=== PATIENT | female | born 1940 | race Caucasian/White ===

== ENCOUNTER 2016-05-03 13:08 | Inpatient (IN) | payer OTHER ==
[~2016-05-03] VITALS: Ht 170.2 cm; Wt 71.7 kg
--- NOTE | ~2016-05-03 | EKG ---
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
--- NOTE | ~2016-05-03 | HC ---
[facility] [place] [address] CONSULTATION Name: RASHAD SLAUGHTER Room #: 454-P [facility] IN ..#: [id number] Admission: 05/03/16 Attend Phys: Harley Beaver MD Discharge: Date of : 38 Report #: [id number] THIS REPORT FOR: //name// CC: Bob Beatty DATE OF SERVICE: 05/04/2016 PRIMARY CARE PHYSICIAN: Bob Josue DO HISTORY OF PRESENT ILLNESS: The patient is a 75-year-old single white female who I was asked to see in the hospital today after she had a syncopal spell. The patient has a long history of heart disease. She had a heart murmur for years and eventually underwent aortic valve replacement using tissue valve and repair of an ascending aortic aneurysm at [facility] in 2000. In 2009, she presented with atrial flutter and was anticoagulated with warfarin. She was placed on carvedilol, but developed bradycardia. She was taken off of carvedilol, but developed bradycardia with heart rates in the 30s. She continues to have paroxysmal atrial fibrillation. She is noted to have pauses. In 2011, I electively implanted a permanent dual chamber pacemaker for tachybrady syndrome. The patient was placed back on carvedilol. The patient has done well since that time. I last saw her in the cardiology clinic in May 2015. At that time, her pacemaker is working normally. The patient is on warfarin at that time. The patient was actually admitted here to [facility] a month ago with a urinary tract infection. The patient continues to live by herself. She was brought to the emergency room yesterday. She was found by her home health nurse on the floor. She has been incontinent. It is unclear whether she had syncope. She does have chronic back pain. She denied any recent shortness of breath, palpitations or chest pain. PAST MEDICAL HISTORY: Otherwise significant for cataract extraction, tonsillectomy, resection of the colon cancer in 2010, hypertension, hyperlipidemia, chronic kidney disease. CURRENT MEDICATIONS: Consists of tramadol, Zoloft, iron, carvedilol, aspirin, amlodipine, and Protonix. ALLERGIES: She has previous intolerance to SULFA DRUGS. FAMILY HISTORY: Her mother had an irregular heartbeat. SOCIAL HISTORY: She is single, never . She has a learning disability, previously worked in , lives in an apartment, her sister is a POA. No history of smoking or alcohol abuse. She used to stay active at [email or web address]. [address] [address] CONSULTATION Name: SLAUGHTERRASHAD J Room #: 454-P [facility] IN .R.#: [id number] Admission: 05/03/16 Attend Phys: Harley Beaver MD Discharge: Date of : 38 Report #: [id number] REVIEW OF SYSTEMS: She has had no history of stroke. She does have asthma. No history of peptic ulcer disease, liver disease. She has chronic kidney disease followed by Dr. Ahumada. She has a history of colon cancer, chronic back pain. No history of psychiatric illness. PHYSICAL EXAMINATION: GENERAL: Revealed an elderly female who is lying in bed. She appeared in no distress. VITAL SIGNS: She had a blood pressure of 120/60, pulse is 60. She is afebrile. HEENT: She was anicteric, conjunctiva pink. Mucous membranes are dry. NECK: Veins do not appear distended. No carotid bruits. CHEST: Revealed expiratory wheezes. CARDIOVASCULAR: Regular rate and rhythm, grade 2 systolic ejection murmur. ABDOMEN: Obese, soft, nontender. EXTREMITIES: Had no edema. Dorsalis pedis pulse could not be palpated. SKIN: Cool and dry. NEUROLOGIC: Nonfocal. IMAGING: Her ECG showed atrial fibrillation, controlled ventricular response rate and a right bundle branch block. On the monitor, the patient currently appears to be atrial paced. Her workup in the emergency room yesterday, she had a chest x-ray that showed cardiomegaly, pacemaker in place. Carotid Doppler study showed plaque with no high grade stenosis. CT scan of the head without contrast showed atrophy, old lacunar infarction. No hemorrhage. LABORATORY DATA: Sodium 136, potassium 4.9, BUN is 56, creatinine is 5.0. Her alkaline phosphatase is 232. Troponin 0.04. BNP 20,652. White blood cell count 7.5, hemoglobin 8.9 and platelet count 114,000. 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 Underlying rhythm and sinus bradycardia. There is normal thresholds for sensing and capture of both the atrial and ventricular lead. She was noted to have frequent mode switching that apparently would last hours at a time. IMPRESSION AND RECOMMENDATIONS: 1. Possible syncopal spell, reason unclear. I would rule out seizure. 2. Previous aortic valve replacement using a tissue valve. I would recommend an echocardiogram. 3. Sick sinus syndrome. Normal dual chamber pacemaker. 4. Paroxysmal atrial fibrillation. I would recommend starting the amiodarone. The patient does not appear to be a very good candidate for anticoagulation because of her history of falls and confusion and anemia. 5. Hypertension. The patient has been on a beta deneen. 6. Hyperlipidemia. The patient has been on a statin drug. 7. Chronic kidney disease. The patient has been followed by nephrology. 8. Anemia. No history of bleeding. The patient has been seen by GI in the [facility] [address] [place] [address] CONSULTATION Name: RASHAD SLAUGHTER Room #: 454-P [facility] IN ..#: [id number] Admission: 05/03/16 Attend Phys: Harley Beaver MD Discharge: Date of : 38 Report #: [id number] past. 9. History of colon cancer. By: [id number] Bob Dunn MD, FACC /nt
--- NOTE | ~2016-05-03 | HC ---
[facility] [place] [address] CONSULTATION Name: RASHAD SLAUGHTER Room #: 454-P ADM IN .R.#: [id number] Admission: 05/03/16 Attend Phys: Harley Beaver MD Discharge: Date of : 38 Report #: [id number] THIS REPORT FOR: //name// CC: Bob Beaver DATE OF SERVICE: 05/03/2016 HISTORY OF PRESENT ILLNESS: This is a 75-year-old female patient who was evaluated by me to determine any neurological etiology for the patient's episode of passing out. This patient gives a history that she does not remember what happened. She was passed out. The passing out episode was associated with incontinence. It happened spontaneously and slowly. Apparently, she remembers feeling weak all over the body and then she passed out. Otherwise, she does not know what brought it on and what made her better later on. She never had this kind of episode before. She denies any previous history of stroke, but CT scan does demonstrate stroke. REVIEW OF SYSTEMS: Pretty extensive in this patient. She has a pacemaker in. She follows up with Dr. Dunn. She does not know when was the last time she saw him. She does not think that she ever had a stroke, but CT scan does demonstrate stroke. She has a previous history of UTI and sepsis. She has a longstanding history of chronic renal failure. She is being followed by nephrology and she is going to see them here. She does feel depressed and she takes medications for that, at one time her B12 was low, but she does not know whether it was reached fact not. She had an irregular heart rhythm. She has a pacemaker. She has a history of hypertension. She has a history of depression. This was a relevant 14-point review of system. She is not complaining of any active cardiac, respiratory, GI, , constitutional, dermatological. She does have a baseline back pain. She does not have any dermatological or hematological symptoms, which is new. She does not have any new psychiatric symptom although she has baseline psychiatric problems. This was the relevant 14-point review of system. PAST MEDICAL HISTORY: Positive for pacemaker. FAMILY HISTORY: Negative for early age stroke. SOCIAL HISTORY: She denies the use of alcohol or tobacco. PHYSICAL EXAMINATION: Indicate that she is alert. She is responsive. She can follow simple commands. She looks very empathetic and flat affect. Her memory and fund of knowledge is diminished, but from the record, it looks like that is her baseline. Speech looks intact. Cranial nerve examination is 2-12 indicate [facility] [address] [place] [address] CONSULTATION Name: MAY SLAUGHTERKolby Daigle Room #: 454-P [facility] IN ..#: [id number] Admission: 05/03/16 Attend Phys: Harley Beaver MD Discharge: Date of : 38 Report #: [id number] that she is not able to completely bury her sclera on the left side. Otherwise, they were unremarkable. Her strength, sensation, reflexes and tone are symmetrical, but she is weak at the lower extremity. She indicated this is her baseline. She does not have any cerebellar sign or papilledema. There is no meningeal sign. There is no carotid bruit. She is otherwise reasonably well-developed individual who does not have any dysmorphic features of eyes, ears and face. Her vision and hearing looks adequate. She does not have a thyroid mass. Cardiac examination does indicate some irregularity, but she has a pacemaker, heart sounds, looks unremarkable. She does not appear to have any respiratory difficulty. She does not have much rhonchi. Her pulses are difficult to feel. She has no edema, cyanosis or jaundice. VITAL SIGNS: Blood pressure is 118/45, respiration 17, pulse is 65, temperature is 97.9. LABORATORY DATA: Her CT scan of the head was reviewed and that does show old strokes. One of them appears since last time. IMPRESSION: This patient is not a very good historian. Therefore, many things are not very clear to me. I need to talk to admitting doctor about this patient to get some further history. Records indicate she does have a pacemaker and she does have a history of atrial fibrillation. She tells me she is not on any anticoagulation and she is on aspirin. If that is the case, she needs that question to be evaluated to see if there history of atrial fibrillation has been there and the reason for not being on anticoagulation because CT scan does show a new stroke. The episode of passing does not appear to be secondary to neurological etiology. I will check an EEG. I cannot do an MRI because of the pacemaker and I cannot do a CT angiogram because of her kidney failure. I will do a carotid Doppler. 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 RECOMMENDATIONS: 1. 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 2. EEG. 3. Carotid Doppler. 4. We will recheck vitamin B12. 5. We will check an EEG in this patient. 6. We will follow up this patient with you and look at this test to see if we have any further recommendation. <ELECTRONICALLY SIGNED> By: Ren Pittman MD 05/05/161925 1826 04 MD mauricio Chavis
--- NOTE | ~2016-05-03 | HC ---
[facility] [place] [address] CONSULTATION Name: RASHAD SLAUGHTER Room #: 454-P [facility] IN .R.#: [id number] Admission: 05/03/16 Attend Phys: Harley Baever MD Discharge: Date of : 38 Report #: [id number] THIS REPORT FOR: //name// CC: Bob Beaver DATE OF SERVICE: 05/04/2016 HISTORY OF PRESENT ILLNESS: The patient is a 75-year-old white female who was found on the floor, noted to have an episode of incontinence, uncertain how long she was down. She was found by the home health physician primary care sports medicine. She was admitted to [facility]. She was noted to have old lacunar infarcts, left basal ganglia and left cerebellum and a new CVA just above the caudate nucleus in the right. She is not a candidate for an MRI secondary to a prior cardiac pacemaker. She was also noted to have some acute renal insufficiency secondary to dehydration with acute on chronic renal insufficiency. Nephrology has been involved. Neurology is seeing her as well. She has a past history of atrial flutter, although her Coumadin was stopped July 28 secondary to acute blood loss. The patient is now being seen in rehabilitation medicine consultation. PAST MEDICAL HISTORY: Includes pacemaker in 2011, hypertension, hypercholesterolemia, atrial fibrillation borderline, mental retardation, colon CA with colon resection and note of some metastasis, GI bleed in June 2010, depression, chronic kidney disease, ascending aorta repair with bioprosthetic valve in 2000. MEDICATIONS: Please see the full medication listing. SOCIAL HISTORY: Lives in an apartment. Did not utilize gait aids premorbidly. The apartment is on the seventh floor, and there is an elevator. She does have an involved sister and [id number] who take her grocery shopping. She occasionally utilizes a cane or walker, but typically does not utilize any gait aids. ALLERGIES: No known drug allergies. FAMILY HISTORY: Noncontributory. REVIEW OF SYSTEMS: Did not offer any current complaints of chest pain, shortness of breath or abdominal discomfort. She denies any specific problems swallowing, although the staff have noted some issues with pocketing. No focal extremity pain complaints. PHYSICAL EXAMINATION: GENERAL: A 75-year-old white female in no obvious distress. VITAL SIGNS: Last recorded temperature is 98.3, pulse 61, respirations 18, [address] [address] CONSULTATION Name: MAY SLAUGHTERN Pilo Room #: 454-P [facility] IN [facility]#: [id number] Admission: 05/03/16 Attend Phys: Harley Beaver MD Discharge: Date of : 38 Report #: [id number] blood pressure 127/47. NEUROLOGIC: The patient is alert. She was still a little sleepy as she just got out from a nap. She does follow basic 1 step commands, appeared appropriate, some delay to her responses. EOMs appear to be full. Facies appear to be symmetric. She has functional range of motion of both upper extremities with strength grade 4- to 3+/5. DTRs are trace to 1. In her lower extremities, there is no focal calf swelling. Strength is a grade 3+ to 4- right lower extremity. She may have a little bit more left hip flexor weakness, more of a grade 3+/5. Distally, she is more of a grade 4-/5. DTRs were trace to 1. She was noted to have a right-sided lean when getting up with occupational therapy and was max assist with bed mobility. She is demonstrating what appears to be some pocketing of food on the right and speech therapy has been consulted. Physical therapy did get her up, however, and she was able to ambulate 125 feet, front-wheeled walker with min assist for balance, sit to stand was min assist. ASSESSMENT: A 75-year-old white female with the following problem list: 1. 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 2. Some left-sided weakness, more involving the lower extremity than the upper extremity. 3. Rule out dysphagia with pocketing. Speech therapy to evaluate. 4. Acute renal insufficiency, superimposed on chronic kidney disease. 5. History of cardiac pacemaker. 6. History of atrial flutter. Anticoagulation was stopped secondary to a prior GI bleed. 7. Hypertension. 6. Borderline mental retardation. 7. Hypercholesterolemia. 8. Atrial fibrillation. 9. Congestive heart failure. 10. Chronic kidney disease. 11. Controlled reflux. PLAN: Therapy evaluations are continuing. Would anticipate she should be a good acute in-hospital inpatient rehabilitation candidate. She is motivated to return back to her apartment setting and does have family involvement with her sister and giqngal-jg-nww. She appears motivated to try to work on improving overall functional mobility and ADLs as well as her swallowing and cognition. She certainly meets diagnostic criteria and meets the therapy tolerance criteria for an acute in-hospital inpatient rehabilitation stay. Insurance precertification to be obtained as she is further medically stabilized, and we will follow along with you. <ELECTRONICALLY SIGNED> By: Bob Jeronimo MD 05/05/16 1539 [id number] [id number] Bob Jeronimo MD /nt
--- NOTE | ~2016-05-03 | EEG ---
[facility] [place] [address] ELECTROENCEPHALOGRAM Name: RASHAD SLAUGHTER Room #: 454-P [facility] IN M.R.#: [id number] Admission: 05/03/16 Attend Phys: Harley Beaver MD Discharge: Date of : 38 Report #: [id number] THIS REPORT FOR: //name// CC: Bob Beaver DATE OF SERVICE: 05/04/2016 This patient is being evaluated for the possibility of syncope and memory problems. EEG was done by placing the electrodes by standard 10-20 system of electrode placement. Both referential and sequential montages were used for recording. Background activity in this patient's EEG is about 11 Hz and 30 microvolts. The patient goes to sleep that is associated with bilaterally symmetrical sleep spindle and vertex sharp waves. Photic stimulation is unremarkable. Throughout the record, no active epileptiform activity was noticed. IMPRESSION: This patient's EEG is within normal limit. Thank you very much for this referral. <ELECTRONICALLY SIGNED> By: Ren Pittman MD 05/05/16 1930 1747 22 Ren Pittman MD /nt
--- NOTE | ~2016-05-03 | 2DMMODE ---
[facility] [place] [address] 2 D/M-MODE ECHOCARDIOGRAM Name: RASHAD SLUAGHTER Room #: 454-P [facility] IN [facility]#: [id number] Admission: 05/03/16 Attend Phys: Harley Beaver, Discharge: Date of : 38 Date of Service: 05/04/16 1647 Report #: [id number] THIS REPORT FOR: //name// APPROVED REPORT EXAM: Comprehensive 2D, Doppler, and color-flow Echocardiogram Patient Location: Bedside Blood Pressure: 127/47 mmHg HR: 61 bpm Other Information Study Quality: Adequate Indications Murmur Syncope 2D Dimensions RVDd: 47.21 mm IVSd: 12.92 (7-11mm) LVOT Diam: 20.57 (18-24mm) LVDd: 49.66 mm PWd: 12.22 (7-11mm) Ascending Aorta: 35.91 mm LVDs: 29.73 (25-40mm) IVC: 24.00 mm Aortic Root: 31.00 mm Volumes Left Atrial Volume (Systole) Single Plane 4CH: 55.16 mL Single Plane 2CH: 78.81 mL LA ESV Index: 41.00 mL/m2 Aortic Valve AoV Peak Guzman.: 1.65 m/s AO Peak Gr.: 10.82 mmHg LV Max P.32 mmHg LV Mean P.33 mmHg AO V2 VTI: 375.88 mm LV Max: 1.04 m/s MARTINEZ (VTI): 273.74 cm2 LV Mean: 0.71 m/s LV V1 VTI: 309.82 mm SV (LVOT): 763202.30 mL Mitral Valve MV PHT: 53.29 ms [facility] [address] [place] [address] 2 D/M-MODE ECHOCARDIOGRAM Name: SUKHJINDERRASHAD J Room #: 454-P [facility] IN [facility].#: [id number] Admission: 05/03/16 Attend Phys: Harley Beaver, Discharge: Date of : 38 Date of Service: 05/04/16 1647 Report #: [id number] MV E Max Guzman.: 0.96 m/s E/A Ratio: 1.4 MV A Guzman.: 0.71 m/s MV Decel. Time: 183.77 ms Pulmonary Valve PV Peak Guzman.: 1.24 m/s PV Peak Gr.: 6.16 mmHg Tricuspid Valve TR Peak Guzman.: 3.71 m/s RAP Estimate: 10.00 mmHg TR Peak Gr.: 55.13 mmHg Left Ventricle The left ventricle is normal size. There is normal LV segmental wall motion. Mild concentric left ventricular hypertrophy. Left ventricular systolic function is normal. The left ventricular ejection fraction is within the normal range. LVEF is 60-65%. The left ventricular diastolic function is normal. Right Ventricle Right ventricle is mildly dilated.. The right ventricular systolic function is normal. Atria Left atrium is moderately dilated. Right atrium is mildly dilated. Aortic Valve Bioprosthetic aortic valve is present. Mild aortic regurgitation. There is no aortic valvular stenosis. Mitral Valve The mitral valve is normal in structure. Mild mitral regurgitation. Tricuspid Valve The tricuspid valve is normal in structure. Mild to moderate tricuspid regurgitation. There is mild to moderate tricuspid regurgitation. The right atrial pressure is estimated at 10 mmHg. There is moderate-severe pulmonary hypertension. The estimated PAP is 65 mmHg. Pulmonic Valve Pulmonic valve is not well visualized.. Mild pulmonic regurgitation. Great Vessels The aortic root is normal in size. IVC is dilated and collapses [address] [address] 2 D/M-MODE ECHOCARDIOGRAM Name: SLAUGHTERRASHAD J Room #: 454-P [facility] IN [facility]#: [id number] Admission: 05/03/16 Attend Phys: Harley Beaver, Discharge: Date of : 38 Date of Service: 05/04/16 1647 Report #: [id number] >50% with inspiration. Pericardium There is no pericardial effusion. <Conclusion> Mild concentric left ventricular hypertrophy. Left ventricular systolic function is normal. The left ventricular ejection fraction is within the normal range. Right ventricle is mildly dilated.. Left atrium is moderately dilated. Right atrium is mildly dilated. Bioprosthetic aortic valve is present. Mild aortic regurgitation. Mild mitral regurgitation. Mild to moderate tricuspid regurgitation. There is mild to moderate tricuspid regurgitation. The right atrial pressure is estimated at 10 mmHg. There is moderate-severe pulmonary hypertension. The estimated PAP is 65 mmHg. <ELECTRONICALLY SIGNED> By: Bob Dunn MD, FACC 05/04/16 164 46 46 Bob Dunn MD, FACC /INF
--- NOTE | ~2016-05-03 | HC ---
[facility] [place] [address] CONSULTATION Name: RASHAD SLAUGHTER Room #: 454-P [facility] IN ..#: [id number] Admission: 05/03/16 Attend Phys: Harley Beaver MD Discharge: Date of : 36 Report #: [id number] THIS REPORT FOR: //name// CC: Bob Beaver DATE OF SERVICE: 05/03/2016 REASON FOR CONSULTATION: Elevated creatinine. HISTORY OF PRESENT ILLNESS: This is a 75-year-old female who was found down at home today. She says she was up and about yesterday, she had some back pain and laid down on the floor. Apparently at some point, she was incontinent of feces and urine. She was found today and brought into the Emergency Room. The patient speaks very little but is awake and alert. She states she just had pain and laid down on the floor, which she frequently does. She was in the hospital for 04/12/2016 through 04/17/2016. At that point, she had been having diarrhea. She was volume deplete. She spent 5 days in the hospital and eventually improved. During that prior hospitalization, the patient was admitted with a leukocytosis. She was volume deplete. It looks like cultures were negative during that stay. She received IV fluids. During that time, her creatinine originally was as high as 6.8, it dropped to 4.0 by the time of discharge. Again her baseline creatinine probably is in the 4-4.5 range. She presents today with a creatinine of 5.6. She says she is thirsty. She says she has been drinking some fluid. Appetite has been marginal. She fixes her own food. Her meals come from the cafeteria in her assisted living situation. She denies nausea or vomiting. She was having diarrhea during her prior hospitalization but none recently apparently. She claims she had been taking her medications. There was concern when she came in that she had had a CVA because she was found down. Apparently, there is evidence of some lacunar infarcts, some of which are possibly subacute, nothing as far as acute hemorrhage. Again, the patient has a known problem of chronic kidney disease stage 5. She has been followed in our office for years by Dr. Jagdeep Ahumada. She has declined progression to need dialysis. She for medical management. This has been documented in old records. PAST MEDICAL HISTORY: Longstanding hypertension. She has a history of prior ascending aortic aneurysm repair and bioprosthetic aortic valve. She has had chronic kidney disease now dating back for more than a decade. 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 She had laparoscopic sigmoid resection with reanastomosis. There has been mention that she has been demonstrated to have some metastatic disease, but I am not finding the scan that shows that that might have been done elsewhere. She has had problems with some right-sided hydronephrosis and for a while was getting ureteral stents placed, but those are now out. She says she is voiding without much problem. She has had a previous [facility] [address] [place] [address] CONSULTATION Name: MAY SLAUGHTERKolby Daigle Room #: 454-P ADM IN .R.#: [id number] Admission: 05/03/16 Attend Phys: Harley Beaver MD Discharge: Date of : 38 Report #: [id number] pacemaker placed. She has had atrial fibrillation. She has a pacemaker in place. MEDICATIONS: As listed on admission, tramadol, Zoloft 50 mg daily, iron, carvedilol 6.25 mg b.i.d., aspirin 81 mg daily, amlodipine 10 mg daily, pantoprazole 40 mg daily. ALLERGIES: No known medical allergies. FAMILY HISTORY: Also positive for colon cancer in her sister. SOCIAL HISTORY: The patient lives in a local care center. She generally does take care of some of her ADLs. Meals are provided for her, sounds like she gets some help with her medications. REVIEW OF SYSTEMS: Has been weak. Appetite has been poor. Denies nausea or vomiting, no further diarrhea, has occasional constipation. No difficulty voiding urine. Had some back pain, which is why she states she ended up down on the floor. She denies dyspnea, cough, chest pain or palpitations. She is unaware of fevers, chills or sweats. Mobility is fairly limited. No recent visual or hearing change, no weakness in the extremities. PHYSICAL EXAMINATION: GENERAL: Elderly appearing female, awake, alert, responsive at this time. Although her words are few, she does speak without much difficulty. I do not see evidence of aphasia. VITAL SIGNS: Blood pressure 118/45, heart rate 65, temperature 97.9, oxygen saturation 98%, heart rate 65. HEENT: Shows pupils are equal and reactive at 3 mm. Sclerae nonicteric. Oral mucosa is moist, no oral lesions. NECK: Supple, without JVD. I hear no bruits. CHEST: Fairly clear bilaterally. HEART: Appears fairly regular at this time. ABDOMEN: Has a few bowel sounds present, is nontender, no guarding or rebound. EXTREMITIES: Show just a trace bilateral ankle edema. She has absent pedal pulses. No upper extremity edema. NEUROLOGIC: She is moving all extremities. Is awake, alert and oriented, follows commands and she does not show any aphasia. LABORATORY DATA: From today, sodium 131, potassium 5.1, chloride 99, bicarbonate 21, BUN 56, creatinine 5.6, glucose 90, calcium 8.4, phosphorus 2.1. Total protein 7.2, albumin 2.1. INR is 1.1. White count 9.8. It had been 25.7 on her most recent admit. Hemoglobin 10.9, hematocrit 33.4, platelets 145,000. Differential on the white count 70 neutrophils, 4 bands, 13 lymphs, 11 monocytes and 2 eosinophils. Urinalysis specific gravity 1.010, pH 6.0, 1+ protein, 2+ blood, 0-5 white cells, 0-2 red cells. [facility] [address] [place] [address] CONSULTATION Name: RASHAD SLAUGHTER Room #: 454-P ADM IN [facility]#: [id number] Admission: 05/03/16 Attend Phys: Harley Beaver MD Discharge: Date of : 38 Report #: [id number] ASSESSMENT: 1. Chronic kidney disease stage 5. Her creatinine level is slightly higher than it was 3 weeks ago during her last hospitalization. It is not far off from what her baseline is, which tends to be 4-4.5. Blood pressure is okay, volume status is fairly good at the moment. That is with getting 2 liters of saline in the Emergency Room. She is on normal saline at 80 mL per hour right now and we will continue that. She can eat and drink ad kandy. I do not think she is uremic. She has previously not been deemed a dialysis candidate and I do not see any indication for reevaluating that at this time. 2. Possible new lacunar infarct, neurologically stable at this time. 3. Mild hyponatremia. She is on normal saline. This should correct. We will recheck in the morning. 4. Recent admission with diarrhea and leukocytosis, all of that appears to have been resolved at this time. 5. Hypertension historically. We will see how she does with IV fluids. She is normally on some propranolol. She may need to resume that. 6. Previous right hydronephrosis, negative on recent ultrasound. I do not think we need to reevaluate at this time. 7. 2011 sigmoid colon cancer conflicting statements on recent medical records concerning that. PLAN: 1. Continue current IV fluids, normal saline 80 mL per hour. 2. Recheck labs in the morning. 3. Follow eyes and nose. 4. We will follow along the care of this pleasant patient. <ELECTRONICALLY SIGNED> By: Gagandeep Allen MD 05/06/16 0826 1823 14 Vinicius Licona MD /nt
--- NOTE | ~2016-05-03 | EKG ---
[address] [address] ELECTROCARDIOGRAM REPORT Name: RASHAD SLAUGHTER Room #: 454-P ADM IN M.R.#: [id number] Admission: 05/03/16 Attend Phys: Harley Beaver MD Discharge: Date of : 38 Report #: [id number] THIS REPORT FOR: //name// [facility] Test Date: 2016-05-06 Test Time: 06:45:55 Pat Name: RASHAD SLAUGHTER Department: Room: 454 Gender: F Jaw Skinner: melissa : 1940 Requested By: Bob Dunn Order Number: [id number] MD: Mir Pastor Measurements Intervals [place] Rate: 61 P: [place]: 212 QRS: -34 QRSD: 142 T: 17 QT: 466 QTc: 470 Interpretive Statements Atrial-paced rhythm Right bundle branch block Compared to ECG 05/05/2016 08:07:21 Sinus rhythm no longer present Atrial premature complex(es) no longer present Electronically Signed On 05-06-2016 12:39:37 CDT by Mir Pastor [email or web address] <ELECTRONICALLY SIGNED> By: Mir Pastor MD 05/06/16 1239 0645 Mir Pastor MD /DOTTIE
--- NOTE | ~2016-05-03 | EKG ---
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 : 1940 Requested By: Mookie Chavez Order Number: [id number] MD: Jarek Tinoco Measurements Intervals [place] Rate: 82 P: [place]: QRS: -50 QRSD: 156 T: 30 QT: 436 QTc: 510 Interpretive Statements Baseline artifact Probable atrial fibrillation RBBB and LAFB Compared to ECG 04/12/2016 12:14:45 No significant change was found Electronically Signed On 05-04-2016 8:22:43 CDT by Jarek Tinoco [email or web address] <ELECTRONICALLY SIGNED> By: Jarek Tinoco MD, [facility] 05/04/16 0822 1318 1318 Jarek Tinoco MD, [facility] /EPI
[~2016-05-03 13:08] MED LIST: ACETAMINOPHEN325 M1 PO; AMLODIPINE BESY10 MG PO; ANTACID650 MG PO; ASPIRIN EC81 M1 PO; ASPIRIN81 M2 PO; AUGMENTIN 875875 MG PO; B12INJ IM; BODY PO; CARVEDILOL12.5 MG PO; CARVEDILOL6.25 MG PO; CIPRO250 M1 PO; COREG PO; COUMADIN 5 MG TA5 M1 PO; FUROSEMIDE 40 M40 M1 PO; FUROSEMIDE 80 M80 M1 PO; FUROSEMIDE 80 M80 MG PO; HYDROCODON-ACE1 EAC7; HYDROCODON-ACE1 EAC7 PO; Hydrocodone-Apap 5-325 Tablet PO; IRON325 PO; LASIX 80 MG TAB80 M1 PO; LIPITOR10 MG PO; LISINOPRIL10 MG PO; LISINOPRIL5 MG PO; NORCO 5-325 TA1 EACH PO; NORVASC 5 MG TAB5 MG PO; NORVASC10 MG PO; PRAVASTATIN SOD40 MG PO; PREDNISONE 10 M10 MG; PREDNISONE 10 M10 MG PO; PROTONIX40 M1 PO; PROTONIX40 M2 PO; SIMVASTATIN80 MG PO; TRAMADOL 50 MG50 MG PO; VITAMIN B-12100 MCG SC; ZOLOFT50 MG PO; [UNRECOGNIZED DRUG - OTHER] PO
[2016-05-03 13:09] VITALS: BP 107/74
[2016-05-03 13:42] LABS: HEMATOCRIT 33.4 % (37.0-47.0); HEMOGLOBIN 10.9 gm/dL (12.0-15.0); MANUAL DIFF YES; MCH 27.9 pg (26.0-34.0); MCHC 32.7 g/dL (28.0-37.0); MCV 85.4 fL (80.0-100.0); PLATELET COUNT 145 thou/uL (150-400); RBC 3.92 mil/uL (4.20-5.00); RDW 16.2 % (10.5-14.5); WBC 9.8 thou/uL (4.0-11.0)
[2016-05-03 13:51] LABS: APTT 28.8 Seconds (24.5-32.8); INR 1.1; PROTIME 11.8 Seconds (9.3-11.4)
[2016-05-03 13:55] LABS: ANION GAP 11 mmol/L (7-16); BUN 56 mg/dL (7-18); CALCIUM 8.4 mg/dL (8.5-10.1); CHLORIDE 99 mmol/L (98-107); CO2 21 mmol/L (21-32); CREATININE 5.6 mg/dL (0.6-1.3); GLUCOSE 90 mg/dL (70-99); POTASSIUM 5.1 mmol/L (3.5-5.1); SODIUM 131 mmol/L (136-145)
[2016-05-03 14:14] LABS: ALBUMIN 2.1 g/dL (3.4-5.0); ALKALINE PHOSPHATASE 299 U/L (46-116); CK-MB MASS 3.1 ng/mL (<0.5-3.6); MAGNESIUM 2.1 mg/dL (1.8-2.4); NT-PRO BRAIN NAT PEPTIDE 20652 pg/mL (<300); SGOT 45 U/L (15-37); SGPT 19 U/L (30-65); TOTAL BILIRUBIN 0.7 mg/dL (<0.1-1.0); TOTAL PROTEIN 7.2 g/dL (6.4-8.2); TROPONIN-I < 0.04 ng/mL (<0.04-0.07)
[2016-05-03 14:31] LABS: ABSOLUTE NEUTROPHILS 7.3 thou/uL (1.4-8.2); TOTAL CELL COUNT 100
[2016-05-03 15:09] LABS: URINE BILIRUBIN NEGATIVE (Negative); URINE BLOOD 2+ (Negative); URINE COLOR YELLOW; URINE GLUCOSE-RANDOM* NEGATIVE (Negative); URINE KETONES TRACE (Negative); URINE LEUKOCYTES-REFLEX NEGATIVE (Negative); URINE PROTEIN (DIPSTICK) 1+ (Negative); URINE UROBILINOGEN 0.2 E.U./dl (0.2-1.0)
[2016-05-03 15:17] LABS: SQUAMOUS 0-3 Few /LPF (0-3)
[2016-05-03 15:18] LABS: CASTS None Seen /LPF (None Seen); CRYSTALS None Seen /LPF (None Seen); URINE RBC 0-2 Rare /HPF (0-2); URINE WBC-REFLEX 0-5 Rare /HPF (0-5)
[2016-05-03 15:19] LABS: YEAST-REFLEX Present (None Seen)
[2016-05-03 16:44] VITALS: BP 131/49
[2016-05-03 16:54] VITALS: BP 118/45
[2016-05-03 20:00] VITALS: BP 122/53
[2016-05-03 22:30] LABS: TSH 1.538 uIU/mL (0.358-3.740)
[2016-05-04] VITALS: BP 118/38
[2016-05-04 02:12] LABS: HEMATOCRIT 27.6 % (37.0-47.0); MCH 27.8 pg (26.0-34.0); MCHC 32.4 g/dL (28.0-37.0); PLATELET COUNT 114 thou/uL (150-400); RBC 3.21 mil/uL (4.20-5.00); RDW 16.5 % (10.5-14.5); WBC 7.5 thou/uL (4.0-11.0)
[2016-05-04 02:15] LABS: HEMOGLOBIN 8.9 gm/dL (12.0-15.0); MANUAL DIFF YES
[2016-05-04 02:24] LABS: ALBUMIN 1.8 g/dL (3.4-5.0); CALCIUM 7.8 mg/dL (8.5-10.1); MAGNESIUM 1.8 mg/dL (1.8-2.4); POTASSIUM 4.9 mmol/L (3.5-5.1); TOTAL BILIRUBIN 0.5 mg/dL (<0.1-1.0); TOTAL PROTEIN 6.2 g/dL (6.4-8.2)
[2016-05-04 03:48] LABS: ABSOLUTE NEUTROPHILS 5.9 thou/uL (1.4-8.2); ANISOCYTOSIS 1+; TOTAL CELL COUNT 100
[2016-05-04 03:49] LABS: PLATELET ESTIMATE SLIGHTLY DECREASED
[2016-05-04 04:00] VITALS: BP 107/33
[2016-05-04 08:00] VITALS: BP 127/47
[2016-05-04 09:45] LABS: CHOLESTEROL 174 mg/dL (<200); HDL CHOLESTEROL 24 mg/dL (>40); TC:HDL 7.3 Ratio (Not establshd)
[2016-05-04 09:57] LABS: LDL CHOLESTEROL 110 mg/dL (<100); TRIGLYCERIDE 201 mg/dL (<150); VLDL 40 mg/dL (<40)
[2016-05-04 14:00] VITALS: BP 130/44
[2016-05-04 14:16] VITALS: BP 127/47
[2016-05-04 20:34] VITALS: BP 114/41
[2016-05-05 04:08] VITALS: BP 136/62
[2016-05-05 07:00] VITALS: BP 128/43
[2016-05-05 09:07] LABS: HEMOGLOBIN 8.9 gm/dL (12.0-15.0); MCH 28.4 pg (26.0-34.0); MCHC 32.8 g/dL (28.0-37.0); MCV 86.4 fL (80.0-100.0); RBC 3.12 mil/uL (4.20-5.00); RDW 17.3 % (10.5-14.5); WBC 7.2 thou/uL (4.0-11.0)
[2016-05-05 09:19] LABS: ALBUMIN 1.8 g/dL (3.4-5.0); CALCIUM 7.6 mg/dL (8.5-10.1); CREATININE 4.3 mg/dL (0.6-1.3); PHOSPHORUS 5.1 mg/dL (2.5-4.9); POTASSIUM 4.6 mmol/L (3.5-5.1)
[2016-05-05 11:00] VITALS: BP 140/40
[2016-05-05 15:00] VITALS: BP 100/44
[2016-05-05 19:16] VITALS: BP 127/40
[2016-05-06 04:00] LABS: HEMATOCRIT 25.2 % (37.0-47.0); HEMOGLOBIN 8.3 gm/dL (12.0-15.0); MCH 28.4 pg (26.0-34.0); MCHC 32.9 g/dL (28.0-37.0); MCV 86.5 fL (80.0-100.0); RBC 2.91 mil/uL (4.20-5.00); RDW 17.6 % (10.5-14.5); WBC 8.9 thou/uL (4.0-11.0)
[2016-05-06 04:21] LABS: ALBUMIN 1.6 g/dL (3.4-5.0); CALCIUM 7.5 mg/dL (8.5-10.1); CREATININE 4.2 mg/dL (0.6-1.3); PHOSPHORUS 4.6 mg/dL (2.5-4.9); POTASSIUM 5.3 mmol/L (3.5-5.1)
[2016-05-06 08:21] VITALS: BP 131/40
[2016-05-06 11:50] VITALS: BP 131/39
[2016-05-06 15:45] LABS: % SATURATION 21 % (20-39); IRON 26 ug/dL (50-170); TIBC 123 ug/dL (250-450); UIBC 97 ug/dL
[2016-05-06 16:00] LABS: FOLIC ACID 3.8 ng/mL (8.6-58.9)
[2016-05-06 16:19] VITALS: BP 125/34
[2016-05-06 19:45] VITALS: BP 145/41
[2016-05-07 03:38] VITALS: BP 137/34
[2016-05-07 05:10] LABS: ALBUMIN 1.7 g/dL (3.4-5.0); CALCIUM 7.8 mg/dL (8.5-10.1); PHOSPHORUS 4.5 mg/dL (2.5-4.9)
[2016-05-07 05:20] LABS: POTASSIUM 6.1 mmol/L (3.5-5.1)
[2016-05-07 07:34] VITALS: BP 153/50
[2016-05-07 11:51] VITALS: BP 142/40
[2016-05-07 15:17] VITALS: BP 132/44
[2016-05-07 19:15] VITALS: BP 144/49
[2016-05-08 05:19] LABS: ALBUMIN 1.6 g/dL (3.4-5.0); CALCIUM 8.2 mg/dL (8.5-10.1); PHOSPHORUS 4.5 mg/dL (2.5-4.9); POTASSIUM 5.2 mmol/L (3.5-5.1)
[2016-05-08 07:49] VITALS: BP 133/37
[2016-05-08 11:56] VITALS: BP 152/52
[2016-05-08 15:39] VITALS: BP 143/50
[2016-05-08 19:35] VITALS: BP 152/55
[2016-05-09 04:00] VITALS: BP 149/51
[2016-05-09 06:31] LABS: HEMOGLOBIN 8.2 gm/dL (12.0-15.0); MCH 28.2 pg (26.0-34.0); MCHC 32.7 g/dL (28.0-37.0); MCV 86.3 fL (80.0-100.0); RBC 2.9 mil/uL (4.20-5.00); RDW 18.4 % (10.5-14.5); WBC 11.4 thou/uL (4.0-11.0)
[2016-05-09 06:54] LABS: CALCIUM 7.9 mg/dL (8.5-10.1); CREATININE 3.8 mg/dL (0.6-1.3); MAGNESIUM 1.5 mg/dL (1.8-2.4); POTASSIUM 4.6 mmol/L (3.5-5.1)
[2016-05-09 07:30] VITALS: BP 150/47
[2016-05-09 11:30] VITALS: BP 147/48
[2016-05-09 15:40] VITALS: BP 149/48
[2016-05-09 19:25] VITALS: BP 150/53
[2016-05-10 03:56] VITALS: BP 150/63
[2016-05-10 07:30] LABS: CALCIUM 7.7 mg/dL (8.5-10.1); CREATININE 3.7 mg/dL (0.6-1.3); POTASSIUM 4.7 mmol/L (3.5-5.1)
[2016-05-10 07:41] VITALS: BP 148/90
[2016-05-10 11:45] VITALS: BP 147/77
[2016-05-10] MEDS ORDERED: PACERONE 200 M200 M1 PO (14:49)
[2016-05-10] MEDS ORDERED: LIPITOR10 MG PO (14:51)
[2016-05-10 15:47] VITALS: BP 127/47
[2016-05-11] MEDS ORDERED: ANTACID650 MG PO (10:38)
[2016-05-11] MEDS ORDERED: AUGMENTIN 875-1 EACH PO (10:39)
== END 2016-05-10 16:10 | disposition home health service (06) | DRG 64 ==
LOC: ER 13:08 → 4W 14:54 → EROBS 14:54 → 4W 16:41
PROVIDERS: Emergency Medicine; Hospitalist; Internal Medicine; Internal Medicine Nephrology; Nurse Practitioner; Psychiatry & Neurology Neuromuscular Medicine
DX: I63.9 Cerebral infarction, unspecified (principal); I50.41 Acute combined systolic (congestive) and diastolic (congestive) heart failure; E43 Unspecified severe protein-calorie malnutrition; I13.2 Hypertensive heart and chronic kidney disease with heart failure and with stage 5 chronic kidney disease, or end stage renal disease; E87.2 Acidosis; E87.0 Hyperosmolality and hypernatremia; N17.9 Acute kidney failure, unspecified; E87.1 Hypo-osmolality and hyponatremia; N18.5 Chronic kidney disease, stage 5; I48.92 Unspecified atrial flutter; B37.49 Other urogenital candidiasis; E87.5 Hyperkalemia; E86.0 Dehydration; I48.0 Paroxysmal atrial fibrillation; E78.00 Pure hypercholesterolemia, unspecified; I49.5 Sick sinus syndrome; M19.90 Unspecified osteoarthritis, unspecified site; F32.9 Major depressive disorder, single episode, unspecified; D63.8 Anemia in other chronic diseases classified elsewhere; D69.6 Thrombocytopenia, unspecified; E78.5 Hyperlipidemia, unspecified; K21.9 Gastro-esophageal reflux disease without esophagitis; G89.29 Other chronic pain; M54.5 Low back pain; B95.62 Methicillin resistant Staphylococcus aureus infection as the cause of diseases classified elsewhere; E66.9 Obesity, unspecified; Z68.24 Body mass index [BMI] 24.0-24.9, adult; Z98.42 Cataract extraction status, left eye; Z98.41 Cataract extraction status, right eye; Z95.0 Presence of cardiac pacemaker; Z95.2 Presence of prosthetic heart valve; Z85.038 Personal history of other malignant neoplasm of large intestine; Z80.0 Family history of malignant neoplasm of digestive organs
CPT/HCPCS: 10045

== ENCOUNTER 2016-05-11 10:29 | Emergency (ER) | payer OTHER ==
[~2016-05-11] VITALS: Ht 170.2 cm; Wt 72.6 kg
--- NOTE | ~2016-05-11 | EKG ---
[address] [address] ELECTROCARDIOGRAM REPORT Name: CHARLY SLAUGHTERLYN Pilo Room #: [facility]#: [id number] Admission: 05/11/16 Attend Phys: Discharge: 05/11/16 Date of : 38 Report #: [id number] THIS REPORT FOR: //name// [facility] ED Test Date: 2016-05-11 Test Time: 10:53:51 Pat Name: RASHAD SLAUGHTER Department: Room: Gender: F Care Connector: MZOOK : 1940 Requested By: Latisha Ventura Order Number: [id number] MD: Jacky Anthony Measurements Intervals [place] Rate: 100 P: [place]: QRS: -38 QRSD: 138 T: -9 QT: 410 QTc: 529 Interpretive Statements Atrial fibrillation Right bundle branch block Compared to ECG 05/06/2016 06:45:55 Atrial-paced complex(es) or rhythm no longer present Ventricular-paced complex(es) or rhythm no longer present Electronically Signed On 05-12-2016 13:27:02 CDT by Jacky Anthony [email or web address] <ELECTRONICALLY SIGNED> By: Jacky Anthony MD 05/12/16 1327 1053 1053 Jacky Anthony MD /EPI
[~2016-05-11 10:29] MED LIST changes: +PACERONE 200 M200 M1 PO
[2016-05-11] MEDS ORDERED: ANTACID650 MG PO (10:38)
[2016-05-11] MEDS ORDERED: AUGMENTIN 875-1 EACH PO (10:39)
[2016-05-11 10:57] LABS: ABSOLUTE NEUTROPHILS 9.8 thou/uL (1.4-8.2); BASOPHILS 1.9 % (0.0-2.0); EOSINOPHILS 2.6 % (0.0-3.0); HEMATOCRIT 31.4 % (37.0-47.0); HEMOGLOBIN 10.1 gm/dL (12.0-15.0); LYMPHOCYTES 10.1 % (24.0-44.0); MANUAL DIFF NO; MCH 28.1 pg (26.0-34.0); MCV 87.8 fL (80.0-100.0); MONOCYTES 9.2 % (1.0-8.0); PLATELET COUNT 174 thou/uL (150-400); POLYS 76.2 % (36.0-66.0); RBC 3.58 mil/uL (4.20-5.00); RDW 18.7 % (10.5-14.5); WBC 12.9 thou/uL (4.0-11.0)
[2016-05-11 11:03] LABS: CALCIUM 8.6 mg/dL (8.5-10.1); CREATININE 3.8 mg/dL (0.6-1.3)
== END 2016-05-11 13:16 | disposition home or self-care (01) ==
LOC: ER 10:29
PROVIDERS: Emergency Medicine
DX: M54.5 Low back pain (principal); Z95.0 Presence of cardiac pacemaker; I13.0 Hypertensive heart and chronic kidney disease with heart failure and stage 1 through stage 4 chronic kidney disease, or unspecified chronic kidney disease; N18.9 Chronic kidney disease, unspecified; I50.9 Heart failure, unspecified; E78.00 Pure hypercholesterolemia, unspecified; I48.91 Unspecified atrial fibrillation; Z85.038 Personal history of other malignant neoplasm of large intestine; F32.9 Major depressive disorder, single episode, unspecified; Z98.890 Other specified postprocedural states

== ENCOUNTER 2016-06-26 16:27 | Inpatient (IN) | payer OTHER ==
[~2016-06-26] VITALS: Ht 170.2 cm; Wt 72.6 kg
--- NOTE | ~2016-06-26 | HC ---
[facility] [place] [address] CONSULTATION Name: RASHAD SLAUGHTER Room #: 424-P ADM IN ..#: [id number] Admission: 06/26/16 Attend Phys: Shaun Cuenca MD Discharge: Date of : 38 Report #: [id number] THIS REPORT FOR: //name// CC: Shaun Cuenca Maura Winter DATE OF SERVICE: 06/27/2016 ATTENDING PHYSICIAN: Dr. Cuenca. REASON FOR CONSULTATION: CKD stage 5. HISTORY OF PRESENT ILLNESS: The patient is well known to our service, has been followed in our office for many years. She has CKD stage V. Both her and her daughter have agreed on multiple occasions that she is not in any case to be a dialysis patient and she is to receive conservative therapy and treated as best we can with medical therapy. She apparently had some labs drawn at her extended care facility, had a high potassium and was inappropriately sent to the emergency room, still having us manage this problem as an outpatient. She was then admitted with her high potassium, her higher creatinine and treated and we are seeing her now the next morning. PAST MEDICAL HISTORY: Longstanding progressive chronic kidney disease. She has had a previous colon cancer, which was I believe a stage 2. She has had intermittent right sided hydronephrosis requiring stents in her right kidney for unknown etiology. She has had previous pacemaker, history of atrial fibrillation, previous aortic valve replacement and ascending aorta repair, chronic mental retardation with marked cognitive impairment. SOCIAL HISTORY: No cigarettes or alcohol. Lives in extended care facility. REVIEW OF SYSTEMS: The patient is a poor historian . GENERAL: She says she is feeling fine. EYES: No problems with vision. ENT: Hearing okay and swallows okay. Denies mouth ulcers. ENDOCRINE: No diabetes or thyroid disease. RESPIRATORY: No shortness of breath, pleuritic pain or cough. CARDIAC: No angina or palpitations. GASTROINTESTINAL: Denies nausea, vomiting or diarrhea. GENITOURINARY: Denies dysuria or hematuria. NEUROLOGIC: She has cognitive impairment. No neuropathy, seizure, syncope or stroke. PSYCHIATRIC: Appears to be somewhat chronically depressed. SKIN: No skin rashes, lesions, or ulcers. PHYSICAL EXAMINATION: [facility] [address] [place] [address] CONSULTATION Name: RASHAD SLAUGHTER Room #: 424-P [facility] IN ..#: [id number] Admission: 06/26/16 Attend Phys: Shaun Cuenca MD Discharge: Date of : 38 Report #: [id number] VITAL SIGNS: Comfortable appearing woman in no distress. SKIN: Unremarkable. SKELETAL: No deformity or arthritis. HEENT: Extraocular movements are full. Vision intact. Hearing intact. Mucous membranes slightly dry. NECK: Supple, no JVD. CHEST: Clear to auscultation. HEART: Regular. ABDOMEN: Soft and nontender, without bruits, masses or organomegaly. EXTREMITIES: No clubbing, cyanosis or edema. NEUROLOGIC: Intact except for her cognitive difficulties. LABORATORY DATA: Sodium 134, potassium 5.3, chloride 104, bicarbonate 19, creatinine down from 6.1 to 5.5, BUN 49. ASSESSMENT AND PLAN: 1. Chronic kidney disease stage V. She has progressive chronic kidney disease stage V. She is under conservative treatment. She is a no code blue. We will need to make arrangements to try and treat her chronically as an outpatient. 2. History of colon cancer history of metastatic disease. I will, for completeness, get a CT of the abdomen and pelvis. 3. Marked cognitive impairment, chronic. 4. History of bioprosthetic aortic valve. 5. History of atrial fibrillation. 6. History of right hydronephrosis. By: 0939 17 Jagdeep Ahumada MD /nt
--- NOTE | ~2016-06-26 | EKG ---
[place] [address] [facility] [employer] [place] [address] ELECTROCARDIOGRAM REPORT Name: RASHDA SLAUGHTER Room #: 424-P ADM IN M.R.#: [id number] Admission: 06/26/16 Attend Phys: Shaun Cuenca MD Discharge: Date of : 38 Report #: [id number] THIS REPORT FOR: //name// [facility] ED Test Date: 2016-06-26 Test Time: 17:44:14 Pat Name: RASHAD SLAUGHTER Department: Room: [facility] Gender: F Hospitality Intern: leta : 1940 Requested By: Latisha Ventura Order Number: [id number] MD: Jarek Tinoco Measurements Intervals [place] Rate: 60 P: -15 [place]: 188 QRS: -35 QRSD: 178 T: -28 QT: 527 QTc: 527 Interpretive Statements Incomplete EKG Sinus rhythm Right bundle branch block Prolonged QT interval Compared to ECG 05/11/2016 10:53:51 Sinus rhythm as replaced atrial fibrillation Electronically Signed On 06-27-2016 7:35:11 CDT by Jarek Tinoco [email or web address] <ELECTRONICALLY SIGNED> By: Jarek Tinoco MD, [facility] 06/27/16 0735 1744 1744 Jarek Tinoco MD, [facility] /EPI
[~2016-06-26 16:27] MED LIST changes: +AUGMENTIN 875-1 EACH PO
[2016-06-26 16:28] VITALS: BP 139/41
[2016-06-26 17:57] LABS: ABSOLUTE NEUTROPHILS 8.4 thou/uL (1.4-8.2); BASOPHILS 0.9 % (0.0-2.0); EOSINOPHILS 1.4 % (0.0-3.0); HEMOGLOBIN 10.1 gm/dL (12.0-15.0); LYMPHOCYTES 14.5 % (24.0-44.0); MCH 28.9 pg (26.0-34.0); MCHC 31.5 g/dL (28.0-37.0); MCV 91.8 fL (80.0-100.0); MONOCYTES 8.9 % (1.0-8.0); PLATELET COUNT 112 thou/uL (150-400); POLYS 74.3 % (36.0-66.0); RBC 3.48 mil/uL (4.20-5.00); RDW 19.1 % (10.5-14.5); WBC 11.4 thou/uL (4.0-11.0)
[2016-06-26 17:59] LABS: MANUAL DIFF NO
[2016-06-26 18:15] LABS: ALBUMIN 2.2 g/dL (3.4-5.0); CALCIUM 8.1 mg/dL (8.5-10.1); DIRECT BILIRUBIN 0.3 mg/dL (<0.1-0.3); TOTAL BILIRUBIN 0.7 mg/dL (<0.1-1.0); TOTAL PROTEIN 7.4 g/dL (6.4-8.2)
[2016-06-26 18:18] LABS: POTASSIUM 6.5 mmol/L (3.5-5.1)
[2016-06-26 19:53] LABS: URINE BILIRUBIN NEGATIVE (Negative); URINE BLOOD 1+ (Negative); URINE COLOR YELLOW; URINE GLUCOSE-RANDOM* NEGATIVE (Negative); URINE KETONES NEGATIVE (Negative); URINE NITRITE NEGATIVE (Negative); URINE PROTEIN (DIPSTICK) 1+ (Negative); URINE SPECIFIC GRAVITY 1.015 (1.003-1.035); URINE UROBILINOGEN 0.2 E.U./dl (0.2-1.0)
[2016-06-26] MEDS ORDERED: PACERONE 200 M200 M1 PO (19:59)
[2016-06-26] MEDS ORDERED: LASIX 80 MG TAB80 MG PO (20:00)
[2016-06-26] MEDS ORDERED: REGLAN 10 MG TA10 MG PO (20:00)
[2016-06-26] MEDS ORDERED: DUONEB 2.5-0.5 M3 ML INH (20:01)
[2016-06-26] MEDS ORDERED: PANTOPRAZOLE SO40 M1 PO (20:01)
[2016-06-26] MEDS ORDERED: K-DUR 20 MEQ T20 MEQ PO (20:01)
[2016-06-26] MEDS ORDERED: LIDODERM 5%1 PATC1 TRANSDERM (20:01)
[2016-06-26] MEDS ORDERED: KAYEXALATE15 GM/601 GT (20:01)
[2016-06-26] MEDS ORDERED: LIPITOR10 MG PO (20:02)
[2016-06-26] MEDS ORDERED: APAP650 PO (20:02)
[2016-06-26 20:03] LABS: BACTERIA None Seen /HPF (None Seen); CASTS None Seen /LPF (None Seen); SQUAMOUS 0-3 Few /LPF (0-3); URINE RBC 0-2 Rare /HPF (0-2); URINE WBC 0-5 Rare /HPF (0-5)
[2016-06-26] MEDS ORDERED: BAYER CHEWABLE81 MG PO (20:03)
[2016-06-26] MEDS ORDERED: B12INJ IM (20:03)
[2016-06-26 20:04] LABS: CRYSTALS None Seen /LPF (None Seen); YEAST Present (None Seen)
[2016-06-26] MEDS ORDERED: IRON325 PO (20:04)
[2016-06-26] MEDS ORDERED: ANTI-DIARRHEA2 MG PO (20:05)
[2016-06-26 20:13] VITALS: BP 140/56
[2016-06-26 22:00] VITALS: BP 133/48
[2016-06-27 01:13] LABS: URINE BILIRUBIN NEGATIVE (Negative); URINE BLOOD 1+ (Negative); URINE COLOR YELLOW; URINE GLUCOSE-RANDOM* NEGATIVE (Negative); URINE KETONES NEGATIVE (Negative); URINE LEUKOCYTES-REFLEX 2+ (Negative); URINE PROTEIN (DIPSTICK) 1+ (Negative); URINE SPECIFIC GRAVITY 1.015 (1.003-1.035); URINE UROBILINOGEN 0.2 E.U./dl (0.2-1.0)
[2016-06-27 01:20] LABS: CASTS None Seen /LPF (None Seen); SQUAMOUS None Seen /LPF (0-3)
[2016-06-27 01:21] LABS: CRYSTALS None Seen /LPF (None Seen); URINE RBC 3-10 Few /HPF (0-2)
[2016-06-27 01:22] LABS: YEAST-REFLEX Present (None Seen)
[2016-06-27 04:39] VITALS: BP 124/42
[2016-06-27 06:21] LABS: HEMATOCRIT 27.5 % (37.0-47.0); HEMOGLOBIN 8.8 gm/dL (12.0-15.0); MCH 29.7 pg (26.0-34.0); MCV 92.8 fL (80.0-100.0); RBC 2.96 mil/uL (4.20-5.00); RDW 18.6 % (10.5-14.5); WBC 9.1 thou/uL (4.0-11.0)
[2016-06-27 06:47] LABS: ALBUMIN 1.9 g/dL (3.4-5.0); CALCIUM 7.4 mg/dL (8.5-10.1); CREATININE 5.5 mg/dL (0.6-1.0); PHOSPHORUS 4.6 mg/dL (2.5-4.9); TOTAL BILIRUBIN 0.6 mg/dL (<0.1-1.0); TOTAL PROTEIN 6.2 g/dL (6.4-8.2)
[2016-06-27 06:54] LABS: POTASSIUM 5.3 mmol/L (3.5-5.1)
[2016-06-27 07:43] VITALS: BP 131/86
[2016-06-27 15:43] VITALS: BP 115/43
[2016-06-27 20:00] VITALS: BP 113/36
[2016-06-28 04:22] VITALS: BP 136/29
[2016-06-28 06:11] LABS: ALBUMIN 1.8 g/dL (3.4-5.0); CALCIUM 7.4 mg/dL (8.5-10.1); CREATININE 5.2 mg/dL (0.6-1.0); PHOSPHORUS 3.8 mg/dL (2.5-4.9); POTASSIUM 4.7 mmol/L (3.5-5.1)
[2016-06-28 07:57] VITALS: BP 146/59
[2016-06-28 10:17] LABS: HEMATOCRIT 27.8 % (37.0-47.0); HEMOGLOBIN 8.9 gm/dL (12.0-15.0); MCH 29.7 pg (26.0-34.0); MCHC 31.9 g/dL (28.0-37.0); RBC 2.99 mil/uL (4.20-5.00); RDW 18.9 % (10.5-14.5); WBC 8.4 thou/uL (4.0-11.0)
[2016-06-28 10:35] LABS: CALCIUM 7.6 mg/dL (8.5-10.1); CREATININE 5.2 mg/dL (0.6-1.0); POTASSIUM 4.8 mmol/L (3.5-5.1)
[2016-06-28 16:18] VITALS: BP 111/41
[2016-06-28 20:00] VITALS: BP 126/47
[2016-06-29 04:00] VITALS: BP 114/52
[2016-06-29 06:06] LABS: ABSOLUTE NEUTROPHILS 5.6 thou/uL (1.4-8.2); BASOPHILS 0.8 % (0.0-2.0); EOSINOPHILS 0.9 % (0.0-3.0); HEMATOCRIT 29.4 % (37.0-47.0); HEMOGLOBIN 9.4 gm/dL (12.0-15.0); LYMPHOCYTES 14.2 % (24.0-44.0); MCH 29.9 pg (26.0-34.0); MCHC 32.1 g/dL (28.0-37.0); MCV 93.1 fL (80.0-100.0); MONOCYTES 9.7 % (1.0-8.0); POLYS 74.4 % (36.0-66.0); RBC 3.15 mil/uL (4.20-5.00); RDW 18.6 % (10.5-14.5); WBC 7.5 thou/uL (4.0-11.0)
[2016-06-29 06:10] LABS: MANUAL DIFF NO
[2016-06-29 06:39] LABS: ALBUMIN 1.8 g/dL (3.4-5.0); CALCIUM 7.6 mg/dL (8.5-10.1); CREATININE 5.1 mg/dL (0.6-1.0); PHOSPHORUS 3.8 mg/dL (2.5-4.9)
[2016-06-29 06:41] LABS: POTASSIUM 4.7 mmol/L (3.5-5.1)
[2016-06-29 07:42] VITALS: BP 104/34
[2016-06-29 08:43] LABS: PLATELET COUNT 177 thou/uL (150-400)
[2016-06-29 16:18] VITALS: BP 120/46
[2016-06-30 04:40] LABS: ABSOLUTE NEUTROPHILS 5.8 thou/uL (1.4-8.2); BASOPHILS 1.2 % (0.0-2.0); EOSINOPHILS 2.4 % (0.0-3.0); HEMATOCRIT 30.5 % (37.0-47.0); HEMOGLOBIN 9.8 gm/dL (12.0-15.0); LYMPHOCYTES 13.4 % (24.0-44.0); MCH 29.9 pg (26.0-34.0); MCHC 32.1 g/dL (28.0-37.0); MCV 93.2 fL (80.0-100.0); MONOCYTES 11.4 % (1.0-8.0); PLATELET COUNT 118 thou/uL (150-400); POLYS 71.6 % (36.0-66.0); RBC 3.27 mil/uL (4.20-5.00); RDW 19.2 % (10.5-14.5); WBC 8.1 thou/uL (4.0-11.0)
[2016-06-30 04:43] LABS: MANUAL DIFF NO
[2016-06-30 04:53] LABS: CALCIUM 7.6 mg/dL (8.5-10.1); CREATININE 5.2 mg/dL (0.6-1.0); POTASSIUM 4.3 mmol/L (3.5-5.1)
[2016-06-30 05:02] VITALS: BP 140/60
[2016-06-30 07:33] VITALS: BP 125/41
[2016-06-30] MEDS ORDERED: OXYCODONE HCL 55 MG PO (09:59)
== END 2016-06-30 14:18 | disposition hospice, home (50) | DRG 374 ==
LOC: ER 16:27 → EROBS 19:12 → 4E 19:12
PROVIDERS: Emergency Medicine; Family Medicine; Internal Medicine Nephrology; Nurse Practitioner Family
DX: C18.9 Malignant neoplasm of colon, unspecified (principal); E43 Unspecified severe protein-calorie malnutrition; N17.9 Acute kidney failure, unspecified; C78.00 Secondary malignant neoplasm of unspecified lung; C78.7 Secondary malignant neoplasm of liver and intrahepatic bile duct; I13.2 Hypertensive heart and chronic kidney disease with heart failure and with stage 5 chronic kidney disease, or end stage renal disease; N18.5 Chronic kidney disease, stage 5; E78.00 Pure hypercholesterolemia, unspecified; I48.91 Unspecified atrial fibrillation; Z51.5 Encounter for palliative care; Z66 Do not resuscitate; M19.90 Unspecified osteoarthritis, unspecified site; I50.9 Heart failure, unspecified; K21.9 Gastro-esophageal reflux disease without esophagitis; F32.9 Major depressive disorder, single episode, unspecified; E87.5 Hyperkalemia; D69.6 Thrombocytopenia, unspecified; R33.9 Retention of urine, unspecified; G31.84 Mild cognitive impairment of uncertain or unknown etiology; D72.829 Elevated white blood cell count, unspecified; G89.29 Other chronic pain; M54.9 Dorsalgia, unspecified; E86.0 Dehydration; Z68.25 Body mass index [BMI] 25.0-25.9, adult; Z98.42 Cataract extraction status, left eye; Z98.41 Cataract extraction status, right eye; Z95.2 Presence of prosthetic heart valve; Z95.0 Presence of cardiac pacemaker; Z85.038 Personal history of other malignant neoplasm of large intestine; Z86.14 Personal history of Methicillin resistant Staphylococcus aureus infection; Z82.3 Family history of stroke
CPT/HCPCS: 10183